=== PATIENT | female | born 1945 | race Caucasian/White ===

== ENCOUNTER 2022-04-14 11:00 | Observation (INO) | payer MEDICARE, OTHER, SELFPAY ==
[2022-04-07 08:38] VITALS: BMI 31.7
[2022-04-13] VITALS (15 sets, daily range): BP systolic 115–166; BP diastolic 51–71; PULSE 57–84; RESP 11–18; TEMP 36.3–37.2; O2SAT 93–99; BMI 31.7
--- NOTE | 2022-04-13 06:00 | DI.RAD.S_ITS ---
PROCEDURE: XR KNEE RT 1TO2V INDICATIONS: total right knee TECHNIQUE: 2 view(s) of the knee acquired. COMPARISON: None. FINDINGS: Bones: Patient is status post knee joint arthroplasty. Hardware components are in expected positions. Visualized bony structures are intact. Soft tissues: Overlying postoperative changes are noted. IMPRESSION: Expected postoperative appearance of the right knee arthroplasty. Dictated by: Edgar Mcintyre M.D. on 04/13/2022 at 10:23 Approved by: Edgar Mcintyre M.D. on 04/13/2022 at 10:24
[2022-04-13] MEDS: CELECOXIB 200 MG CAPSULE PO (07:19)
[2022-04-13] MEDS: ACETAMINOPHEN 325 MG TABLET 975 MG PO (07:19)
[2022-04-13] MEDS: LACTATED RINGERS 1,000 ML 42 ML IV ×2 (07:21→08:43)
--- NOTE | 2022-04-13 07:33 | PM.PREOP ---
Pre-operative Note COVID-19 COVID-19 status: Negative Result date/Date tested (Pos, Neg/Pending): 04/11/22 Interval Note History & Physical reviewed/Exam performed by Physician: Yes Changes to H&P: No
--- NOTE | 2022-04-13 07:45 | SUR.PREOP ---
Block start time [0730] . Monitoring initiated and maintained throughout procedure. Oxygen and medications given per anesthesiologist instructions. Patient remained stable throughout procedure, no adverse reactions noted. Block end time [0740].
[2022-04-13] MEDS: CEFAZOLIN 2 GM/100 ML PREMIX 100 ML IV ×3 (07:50→23:45)
[2022-04-13] MEDS: TRANEXAMIC ACID 1,000 MG VIAL 1000 MG INJ ×2 (08:00→09:00)
--- NOTE | 2022-04-13 08:13 | SUR.OPER ---
Supine on padded OR bed, head on pillow, arms secured on padded arm boards at <90 degrees abduction, legs uncrossed, safety belt at abdomen, tape over left leg and Demayo positioner in place for right leg. Right leg padded with foam and secured with coban
[2022-04-13] MEDS: MORPHINE 4 MG/ML INJ INJ (08:21)
[2022-04-13] MEDS: BUPIVACAINE LIPOSOME 266 MG/20 ML VIAL INJ (08:21)
[2022-04-13] MEDS: BUPIVACAINE 0.5% W/ EPI (PF) 30 ML VIAL INJ (08:22)
--- NOTE | 2022-04-13 09:17 | P.OP_ITS ---
Operative Date/Time/Diagnoses Date of procedure: 04/13/22 Time of procedure: 09:17 Pre-op diagnosis: Right knee osteoarthritis Post-op diagnosis: same Procedure & Clinicians Procedure: Right total knee replacement Same procedure as scheduled: Yes Indications: The patient has had progressively worsening right knee pain with radiographic changes consistent with arthritis. Non-operative management has failed and the patient has requested total knee replacement. The risks, benefits and alternatives to surgery were discussed with the patient prior to proceeding. Risks discussed included, but were not limited to, failure to relieve pain, stiffness, infection, nerve damage, deep venous thrombosis, pulmonary embolism, stroke, coma, heart attack, permanent paralysis and , as well as the potential need for eventual revision of the prosthetic. Surgeon: Alfred Zhu Water Manager: Lynnette Tinoco Yes if Unassisted: No Anesthesia Type: General, Peripheral nerve block and Local Operative Notes Findings: Severe medial and moderate patellofemoral osteoarthritis with relative preservation of the lateral compartment. Closure Type: primary Specimen(s): none sent Prosthetic devices, grafts, tissues, transplants, or devices: Implants used in this procedure were manufactured by the [employer] and included the BCS II Journey total knee replacement with a size 6 cobalt chromium femur, size 4 non porous tibial base plate, a 10 mm cross-linked polyethylene tibial insert and a 32 mm oval Sangeetha II patella. Applied: implant(s) Estimated Blood Loss (mL): 25 Blood products transfused: none Tourniquet time (min): 46 Procedure in detail: The patient was seen in the pre-operative area, where the patient identified the right knee as the operative site and this was marked with my initials. The patient received pre-operative antibiotics, and was taken to the operating room and placed on the operative table in the supine position. After satisfactory anesthesia, a flight crew time clerk out was performed. The right leg was encircled with a tourniquet about the proximal thigh, and the leg was prepared from the toes to the tourniquet with ChloroPrep in the usual fashion and draped through sterile drapes. The leg was elevated and exsanguinated with Eschmark bandage and the tourniquet inflated to 250 mmHg pressure. The knee was approached through an approximately 18 cm incision centered over the patella and carried into the knee through a medial parapatellar arthrotomy. The anterior osteophytes and soft tissues were removed. The rotational landmarks of [place]'s line and the transepicondylar axis were marked on the femur with electrocautery, and intramedullary guide holes for the femur and tibia were created. The distal femoral cut was made in 6 degrees of valgus using the intramedullary guide at the primary cut setting. The proximal tibial cut was then made using the intramedullary guide, taking 9 mm of bone off the less involved side. The extension gap was checked and the rotation of the femoral component confirmed with the gap balancing system. The anterior, posterior and chamfer cuts were then made. The posterior osteophytes and soft tissues were then removed. The posterior capsule was injected with part of a mixture of 60 ml 0.25% Marcaine mixed with 20 ml Exparel and 4 mg of morphine for post-operative pain control. The remainder of this mixture was injected into the capsule and subcutaneous tissues during cement curing. The tibia was prepared with the rotation set by an extra medullary guide. Trial tibial and femoral components were then placed and the intercondylar notch cut through the femoral trial. Range of motion was 0-135 degrees, with good stability throughout the range. The patella was then cut to accommodate the patellar prosthetic. There was no need for a lateral release. The trials were then removed, and the femoral hole plugged with a bone plug. The bone was prepared with pulsatile lavage, and dried with a sponge. Cement was applied and the final prosthetics placed. Excess cement was removed during and after cement curing. After confirming there was no extruded cement posteriorly, the final tibial insert was placed. The knee was copiously irrigated and the tourniquet deflated. Hemostasis was obtained. The capsule was closed with interrupted # 2 polyester suture. The subcutaneous layer was closed with 3-0 Vicryl, and the skin with a running 3-0 V-Lock suture and Dermabond. An Aquacel Ag dressing was applied and the patient was taken to recovery having tolerated the procedure well. A skilled law office assistant was necessary during this case to provide positioning, exposure and retraction to protect vital structures. The procedure could not have been completed in a safe, expedient fashion without the services of Ms. Nichols. Complications: none Post-operative Condition: stable Disposition: PACU Plan for aftercare: The patient will be maintained on a standard total knee replacement protocol with weight bearing as tolerated. The patient will receive aspirin and sequential compression devices for DVT prophylaxis. The patient will be discharged home when safe for the home environment.
[2022-04-13] MEDS: OXYCODONE IR 5 MG TABLET PO ×2 (10:00→14:42)
--- NOTE | 2022-04-13 10:22 | SUR.PHASEI ---
To 224 with duffel bag and belongings bag.
[2022-04-13] MEDS: LACTATED RINGERS 1,000 ML 100 ML IV ×2 (10:35→22:18)
--- NOTE | 2022-04-13 10:55 | PC.NURSE ---
Pt to room 224 via bed from PACU. Pt oriented to room, call light, bed controls, and tv controls, discussed not getting up without assistance and using call light for assistance. SCD's on and running. IV infusing as ordered. Pt given water to drink and a snack. Pt denies needs at this time and agrees to call for assistance as needed.
[2022-04-13] MEDS: ACETAMINOPHEN 325 MG TABLET 650 MG PO ×3 (12:25→23:45)
--- NOTE | 2022-04-13 15:15 | PT.IIE ---
Current Diagnoses Unilateral primary osteoarthritis, right knee (04/13/22) Surgery Performed Operation Date: 04/13/22 07:45 Actual Procedures p Total Knee Arthroplasty(Right) - Alfred Zhu MD Surgical History (Last Updated 04/07/22 @ 09:30 by Tuyet Espinoza RN) History of back surgery (~1981) History of hysterectomy History of lumbar spinal fusion (~1981) Hx of bilateral cataract extraction Hx of splenectomy (~2019) Hx of tonsillectomy Medical History (Last Updated 04/07/22 @ 09:30 by Tuyet Espinoza RN) HLD (hyperlipidemia) HTN (hypertension) JUAN DAVID (obstructive sleep apnea) Physical Therapy Inpatient Evaluation/Re-Eval M1 PT/OT-IP Prior Functional Status Start: 04/13/22 17:34 Freq: NEEDED Status: Active Protocol: Document 04/13/22 15:15 AB (Rec: 04/13/22 17:47 AB [id number]) Medical Review Prior Functional Status Medical History Reviewed Yes Communication able to make needs known Mobility and Gait pt stated that she is independent with all mobilities and ambulation without AD Social History Household Members none Living Arrangements House Number of Floors (Floors) One Floor Number of Stairs To Enter/Railing? 2 steps R rail ascending to enter the house from the garage 4 steps with bilateral wide rails to enter from the front (pt prefers to go through the front due to steadier railings ) Home Environment High Toilet,Walk in Shower, Built-In Shower Seat Home Equipment Front Wheel Walker,Straight Cane,Manual Wheelchair,Shower Seat without Backrest,Hand Held Shower,Grab Bars Near Toilet,Grab Bars In Shower Additional Social History Comment pt has an adjustable bed pt stated that her cousin will stay with her this week to assist her and will be able to call for assistance when needed when she is by herself; pt stated that she already has homehealth set up and will go to [facility] outpt PT afterwards M2 PT-IP Current Condition Start: 04/13/22 17:34 Freq: NEEDED Status: Active Protocol: Document 04/13/22 15:15 AB (Rec: 04/13/22 17:47 AB [id number]) Physical Therapy Current Condition Current Condition Evaluation Date 04/13/22 Treatment Diagnosis s/p R TKA; difficulty in walking Onset Date 04/13/22 M3 PT-IP Subjective Start: 04/13/22 17:34 Freq: NEEDED Status: Active Protocol: Document 04/13/22 15:15 AB (Rec: 04/13/22 17:47 AB [email or web address]) Subjective Physical Therapy Visit Type Type Initial Evaluation Visit Start Time 15:15 Visit Stop Time 16:05 Total Visit Minutes 50 Number of EVENT TECHNICIAN Visits 0 Physical Therapy Visit Comments Patient Comments agreed to do PT Therapy Pain Assessment Pain When Pain Assessed During Mobility Pain Present Pain Present Pain Reported Location Right Knee Scale Used pain scale not stated Pain Management Techniques Apply Cold,Distraction, Modification of Treatment,Re- positioning,Timing of Activity with Medications M4 PT-IP Mobility and Gait Start: 04/13/22 17:34 Freq: NEEDED Status: Active Protocol: Document 04/13/22 15:15 AB (Rec: 04/13/22 17:47 [email or web address]) PT-Bed Mobility Assessment Supine to Sit Supine to Sit Standby Assistance PT-Transfer Assessment Sit to and From Stand Sit to and from Stand Minimal Assistance,1 Person Assistance,Use of Upper Extremities Equipment Transfer Assistive Device Gait Belt,Front Wheeled Walker Orthotic/Prosthetic Devices or Brace: No Transfers Transfer Destination Bedside Commode Transfer Technique ambulated Transfer Ability Level of Assist Minimal Assistance,1 Person Assistance,Use of Upper Extremities Comments Mobility Comments completed supine to sit SBA and cues. requires increase time to complete task. able to sit on EOB SBA. completed sit to stand min A and requested to use the toilet but refused to walk to the toilet and requested to use bedside commode. ambulated ~ 20 ft using FWW to the bedside commode min A and cues. required min A for standing balance while assisted the hygiene care and brief management. pt agreed to sit up on the chair and ambulated from the commode to the chair using FWW min A ~ 12 ft. positioned pt on the chair. call light and table placed within reach. set up caregiver training tomorrow and pt's cousin will be coming in at 9 am tomorrow. Gait Assessment Gait Gait Assistance Required: Minimum Assistance Distance (Feet) 20 Able to Maintain Weight Bearing Status Yes During Gait Assistive Devices Assistive Device Gait Belt,Front Wheeled Walker Orthotic/Prosthetic Devices or Brace: No Gait Deviations General Gait Pattern Antalgic,Decreased Stride Length,Decreased Feet Clearance,Flexed Trunk Factors Limiting Gait Function Factors Limiting Gait Function Decreased Activity Tolerance, Decreased Strength,Limited Range of Motion,Pain,Poor Balance,Poor Safety Awareness PT-Balance Assessment Sitting Balance and Reactions Static Sitting Balance Ability Normal Dynamic Sitting Balance Ability Good Standing Balance and Reactions Static Standing Balance Ability Fair Dynamic Standing Balance Ability Fair Device Used FWW M5 PT-IP Objective Assessments Start: 04/13/22 17:34 Freq: NEEDED Status: Active Protocol: Document 04/13/22 15:15 AB (Rec: 04/13/22 17:47 AB [email or web address]) Orientation Orientation/Cognition Level of Alertness Alert Orientation Name,Place,Situation Language Function Ability No Deficits Noted Safety Awareness Decreased Safety Awareness Memory Description No Deficits Noted Gross Range of Motion Lower Extremity ROM Assessment Right Impaired Impairments R knee flexion: ~ 40 deg R knee extension: with ~ 20 deg less to 0 Strength Lower Extremity Strength Assessment Right Impaired Hip 4-/5 Knee 3+/5 Sensation Assessment Sensation Gross Sensation WNL Muscle Tone Muscle Tone WNL Yes M6 PT-IP Treatment Start: 04/13/22 17:34 Freq: NEEDED Status: Active Protocol: Document 04/13/22 15:15 AB (Rec: 04/13/22 17:47 AB [email or web address]) Physical Therapy Treatment Exercises Exercises Heel Slides Education Education Provided Precautions,Weight Bearing Status,Post-Op Packet,Safety Other Treatments Other Treatment Performed completed heel slides prior to mobility M7 PT-IP Assessment and Plan Start: 04/13/22 17:34 Freq: NEEDED Status: Active Protocol: Document 04/13/22 15:15 AB (Rec: 04/13/22 17:47 AB [email or web address]) PT Summary Assessment and Plan Potential Rehabilitation Potential Fair Status of Condition at Evaluation Evolving Summary Impairments Pain,ROM,Strength,Balance, Coordination,Sensation,Tone, Cognition,Bed Mobility, Transfers,Gait,Activity Tolerance Assessment Summary pt s/p R TKA and just had surgery today. Pt needing min A with transfers and ambulation using FWW and will likely progress during hospital stay. caregiver training set up for tomorrow at 9 am. will continue to assess progress. Goals Bed Mobility Goal Independent Transfer Goal Independent,Front Wheeled Walker Gait Goal Independent,Front Wheel Walker Gait Distance 200 Other Goals up/down 4 steps 1 rail SBA Days to Meet Goals 5 Frequency of Treatment Frequency Of Treatment Twice a Day Treatment Plan Physical Therapy Treatment Plan Bed Mobility Training,Transfer Training,Gait Training, Therapeutic Exercise,Balance Retraining,Post Op Education, Discharge Planning,Hot or Cold Pack,Neuromuscular Re-ed, Coordination Retraining,Manual Therapy Weight Bearing Status Weight Bearing Status Weight Bear as Tolerated Allowed Weight Bearing Amount (enter % RLE WBAT or #) (%) Recommendations To Nursing Amount of Assist Needed 1 Person Assist Discharge Recommendations PT Discharge Recommendations Home with Assistance,Home Health,Outpatient PT Transportation Needs at Discharge Private Vehicle
[2022-04-13] MEDS: OXYCODONE IR 10 MG TABLET PO ×2 (19:49→23:45)
[2022-04-13] MEDS: DOCUSATE 100 MG CAPSULE PO (20:52)
[2022-04-13] MEDS: MORPHINE IR 15 MG TABLET PO (20:53)
[2022-04-13] MEDS: PREGABALIN 25 MG CAPSULE PO (20:54)
[2022-04-14] VITALS (7 sets, daily range): BP systolic 135–168; BP diastolic 55–85; PULSE 54–71; RESP 18–19; TEMP 37.1–37.8; O2SAT 95–99
--- NOTE | 2022-04-14 00:59 | PC.NURSE ---
Patient is alert and oriented. Breath sounds CTA with RA sat of 95%. HRR but bradycardic with rate in 50's. Denied nausea. BT present and is passing flatus. Has chronic urinary urgency for which she takes tolterodine BID which is being substituted with oxybutynin ER while in hospital; is voiding per BSC but also incontinent of urine. Is able to move herself in bed. Assisted out of bed to BSC with walker and 1 assist. CMS is intact except only able to lift right leg a couple inches off bed. Aquacel dressing with small spot of drainage noted at proximal end; covered with rossy wrap. Complained of 10/10 pain and has been medicated with oxycodone twice this shift as well as receiving scheduled Morphine and Tylenol; declines ice pack. Had bilateral calf SCD's on until 0000 and then requested they be removed as is difficult to sleep with them on. Fall risk score is moderate but patient calls appropriately for assistance so alarm is not currently activated.
[2022-04-14] MEDS: OXYCODONE IR 10 MG TABLET PO ×2 (04:31→10:03)
[2022-04-14] MEDS: ACETAMINOPHEN 325 MG TABLET 650 MG PO ×4 (05:48→22:47)
--- NOTE | 2022-04-14 07:50 | PM.DS.1 ---
History of Present Illness History of Present Illness Date Patient Seen: 04/14/22 Time Patient Seen: 07:51 Chief complaint: OPB Narrative: Patient is complaining of moderate to severe right knee pain this morning. She is a chronic pain management patient and takes morphine sulfate 15 mg b.i.d. baseline. She feels she over did it working with physical therapy yesterday. Overall she is feeling well would like to be discharged home today. Discharge Providers Provider Discharge Date: 04/14/22 Primary care physician: Mukesh Andersen MD Consults: 04/13/22 10:09 Consult to Discharge Planning Routine Comment: Consult to Physical Therapy Evaluate & Treat Comment: Physician Instructions: postop TKA protocol Discharge provider: Camille Randall PA-C Summary Hospital Course Discharge Diagnosis: Right knee osteoarthritis Hospital Course: Operative Date/Time/Diagnoses Date of procedure: 04/13/22 Time of procedure: 09:17 Procedure & Clinicians Procedure: Right total knee replacement Same procedure as scheduled: Yes Indications: The patient has had progressively worsening right knee pain with radiographic changes consistent with arthritis. Non-operative management has failed and the patient has requested total knee replacement. The risks, benefits and alternatives to surgery were discussed with the patient prior to proceeding. Risks discussed included, but were not limited to, failure to relieve pain, stiffness, infection, nerve damage, deep venous thrombosis, pulmonary embolism, stroke, coma, heart attack, permanent paralysis and , as well as the potential need for eventual revision of the prosthetic. Surgeon: Alfred Zhu [employer] Platemaker: Lynnette Nichols Click Yes if Unassisted: No Anesthesia Type: General, Peripheral nerve block and Local Operative Notes Findings: Severe medial and moderate patellofemoral osteoarthritis with relative preservation of the lateral compartment. Closure Type: primary Specimen(s): none sent Prosthetic devices, grafts, tissues, transplants, or devices: Implants used in this procedure were manufactured by the [employer] and included the BCS II Journey total knee replacement with a size 6 cobalt chromium femur, size 4 non porous tibial base plate, a 10 mm cross-linked polyethylene tibial insert and a 32 mm oval Sangeetha II patella. Applied: implant(s) Estimated Blood Loss (mL): 25 Blood products transfused: none Tourniquet time (min): 46 Status at Discharge Cognitive/behavioral status at discharge: at baseline, oriented Functional status at discharge: uses cane/walker Overall status at discharge: patient is progressing back to baseline Exam Vital Signs (past 8 hours): - 04/14/22 00:00 04/14/22 00:00 04/14/22 04:00 Temperature 99.1 F 98.8 F Pulse Rate 54 L 61 Respiratory Rate 19 18 Blood Pressure 135/67 158/85 H Pulse Oximetry 97 95 Oxygen Flow Rate 0 04/14/22 04:00 Temperature Pulse Rate Respiratory Rate Blood Pressure 157/55 H Pulse Oximetry Oxygen Flow Rate Oxygen Delivery Method Room Air Oxygen Flow Rate 0 Narrative Exam Narrative: Pleasant 76-year-old female, resting comfortably in bed, no acute distress. Right knee dressing is clean, dry, intact. She is mildly tender to palpation with mild edema in her right calf. Bilateral lower extremity: Motor functions are grossly intact, sensation is grossly intact to light touch, calves are soft but right calf is tender to palpation with some edema. [facility] Medical History HLD (hyperlipidemia) HTN (hypertension) JUAN DAVID (obstructive sleep apnea) Surgical History History of back surgery (~1981) History of hysterectomy History of lumbar spinal fusion (~1981) Hx of bilateral cataract extraction Hx of splenectomy (~2019) Hx of tonsillectomy Social History household members: none Smoking Status: Never smoker alcohol intake: current Discharge Assessment & Plan Assessment and Plan Assessment: -stable status post right total knee arthroplasty -chronic pain management patient Plan of Treatment: -mobilize with PT. Weightbearing as tolerated with front wheel walker or cane -continue with multimodal pain management, add oxycodone for breakthrough pain in addition to her baseline morphine sulfate 15 mg b.i.d. -resume Plavix plus aspirin today for DVT prophylaxis, this is her baseline medications -right lower extremity ultrasound ordered stat to rule out DVT -DC home once cleared by PT Discharge Plan Discharge Plan Patient Disposition: Home Discharge orders & Medications Discharge Orders: Discharge (Order); Ordered 04/14/22 Ordered By: Camille Randall Prescriptions: New docusate sodium 100 mg Capsule 100 mg PO BID PRN (Reason: constipation) Qty: 20 0RF oxycodone 5 mg tablet See Rx Instructions .ROUTE .COMPLEX PRN (Reason: Pain, Severe (7-10)) Qty: 42 0RF Rx Instructions: Take 1-2 tablets every 4 hours as needed for moderate to severe breakthrough postoperative pain aspirin 81 mg Tablet,Delayed Release (Dr/Ec) 81 mg PO DAILY Qty: 90 0RF acetaminophen 325 mg Tablet 650 mg PO Q6HR Qty: 90 0RF Continued lisinopril 20 mg Tablet 60 mg PO DAILY clopidogrel 75 mg Tablet 75 mg PO DAILY tolterodine 2 mg Tablet 2 mg PO BID morphine 15 mg Tablet 15 mg PO BID rosuvastatin 40 mg Tablet 40 mg PO DAILY pregabalin 25 mg Capsule 25 mg PO BID Follow up/Referrals: Alfred Zhu MD [Physician] - As previously scheduled (Follow up with Camille Randall PA-C, on 04/28/2022 @ 10:30 am at [facility] in [place].) Mukesh Andersen MD [Primary Care Provider] - Diet/Activity/Treatments Diet: Diet as Tolerated Activity: Walk frequently! Cold/Heat Therapy: Ice to knee as needed for pain. Other treatments: Medications: -please do NOT use ibuprofen prescribed at preop appointment, it increases the risk of bleeding with Plavix and aspirin Dressing/Wound care: -Remove the Dion wrap 48 hours after surgery. -Keep Aquacell dressing in place until postoperative follow-up office visit. -Okay to shower. Keep wound out of direct water stream. No soaking or submerging until all the scabs fall off (approximately 4-6 weeks). -No lotions, ointments, or scar creams directly to the incision until the wound is healed (4-6 weeks). No soaking or submerging until all the scabs are gone (usually 4-6 weeks). -Bruising is relatively normal and can show up 1-10 days after surgery, and can travel down to your foot or ankle. This is expected after surgery, but can be painful. -Please call the office if dressing becomes wet, soiled, or saturated. Activities: -Weight-bearing as tolerated. Use front wheeled walker, and progress to cane when safe. -Continue with home exercises as directed by your physical therapist. -Elevate ?toes above the nose if you have significant swelling in your lower leg. (A wedge pillow is easiest.) -Ice your incision as needed for pain/inflammation/swelling. Protect your skin with a folded pillowcase. -Incentive Spirometer (breathing device from hospital): 5-10xs every hour while awake for the first 1-2 weeks. Follow-up: -Follow-up with your surgeon or PA in the office in 10-14 days after surgery. -Follow-up with your surgeon 6 weeks postoperatively. Call the office if you have chest pain, shortness of breath, significant swelling that will not resolve with elevating, fever over 101?, significantly worsening pain, or are concerned you might need to go to the Emergency Room. [facility]: [phone] Skin/Wound/Dressing Care Report to your healthcare provider any signs of infection, such as:: chills, fever, night sweats, unusual drainage and unusual redness Visit Report/Discharge Packet Instructions: DI for Knee Replacement Stand Alone Forms: Surgery Discharge Discharge Data Primary Care Provider: Mukesh Andersen Attending Provider: Alfred Zhu Quality VTE Deep Vein Thrombosis/Pulmonary Embolism Present on Admission: No
[2022-04-14 07:58] LABS: Hematocrit 23.1 % (36-46); Hemoglobin 7.7 g/dL (12.0-16.0)
[2022-04-14] MEDS: MORPHINE IR 15 MG TABLET PO ×2 (10:01→22:47)
[2022-04-14] MEDS: ATORVASTATIN 20 MG TABLET 80 MG PO (10:01)
[2022-04-14] MEDS: lisinopriL 20 MG TABLET 60 MG PO (10:02)
[2022-04-14] MEDS: CLOPIDOGREL 75 MG TABLET PO (10:02)
[2022-04-14] MEDS: PREGABALIN 25 MG CAPSULE PO ×2 (10:02→22:46)
[2022-04-14] MEDS: ASPIRIN EC 81 MG TABLET PO (10:02)
[2022-04-14] MEDS: DOCUSATE 100 MG CAPSULE PO ×2 (10:03→22:46)
[2022-04-14] MEDS: OXYBUTYNIN 5 MG ER TAB 10 MG PO (10:03)
--- NOTE | 2022-04-14 10:48 | PT.IPTN ---
Current Diagnoses Unilateral primary osteoarthritis, right knee (04/14/22) Surgery Performed Operation Date: 04/13/22 07:45 Actual Procedures p Total Knee Arthroplasty(Right) - Alfred Zhu MD Physical Therapy Treatment Note M2 PT-IP Current Condition Start: 04/13/22 17:34 Freq: NEEDED Status: Active Protocol: Document 04/14/22 09:39 SP (Rec: 04/14/22 15:35 SP [id number]) Physical Therapy Current Condition Current Condition Evaluation Date 04/13/22 Treatment Diagnosis s/p R TKA; difficulty in walking Onset Date 04/13/22 M3 PT-IP Subjective Start: 04/13/22 17:34 Freq: NEEDED Status: Active Protocol: Document 04/14/22 09:39 SP (Rec: 04/14/22 15:35 SP [id number]) Subjective Physical Therapy Visit Type Type Treatment Note Visit Start Time 09:39 Visit Stop Time 10:48 Total Visit Minutes 69 Notes Pt's cousin in room for CGT when arrived. Number of ELECTRICIAN APPRENTICE Visits 1 Physical Therapy Visit Comments Patient Comments Pt eating when initially arrived, requested ELECTRICIAN APPRENTICE return little later for CGT planned. Patient Goals Return home with cousin to assist her if able. Therapy Pain Assessment Pain When Pain Assessed During Mobility Pain Present Pain Present Pain Reported Location Right Knee Intensity 8 Scale Used Numeric (0 - 10) Description With Movement Pain Behaviors Facial Grimacing,Guarding Pain Management Techniques Apply Cold,Distraction, Modification of Treatment,Re- positioning,Timing of Activity with Medications M4 PT-IP Mobility and Gait Start: 04/13/22 17:34 Freq: NEEDED Status: Active Protocol: Document 04/14/22 09:39 SP (Rec: 04/14/22 15:35 SP [id number]) PT-Transfer Assessment Sit to and From Stand Sit to and from Stand Standby Assistance,Contact Guard Assistance,1 Person Assistance,Use of Upper Extremities Equipment Transfer Assistive Device Gait Belt,Front Wheeled Walker Orthotic/Prosthetic Devices or Brace: No Transfers Transfer Destination Bed,Toilet,Wheelchair Transfer Technique pt ambulated using FWW Transfer Ability Level of Assist Standby Assistance,Contact Guard Assistance,1 Person Assistance,Use of Upper Extremities Comments Mobility Comments Pt in bathroom when arrived, PASTE MIXER providing SBA to pt, when ELECTRICIAN APPRENTICE arrived. ELECTRICIAN APPRENTICE offered and educated pt and PASTE MIXER importance of use of gait belt for safety during mobility. ELECTRICIAN APPRENTICE noted pt very slow moving mobility required extra time, noted RLE unsteady midstance phase and very heavy BUE WB on FWW walking out of bathroom CGA via ELECTRICIAN APPRENTICE/cousin, cued pt R quad facilitation for safety. Pt progressed gait to sink 10 ft, safety cued postioning FWW facing sink then progressed gait to hallway wheelchair CGA via cousin. Safety cues centering/back pivot stepping FWW full back then reach slow descent CGA. Pt wheeled down to stairs, ed on patterning stair mgt. Pt STS from wc, step to gait w/ FWW to stairs Mod/ heavy BUE on FWW CGA via cousin. Pt attempted ascend stairs LHR// RUE on SPC CGA via cousin and ELECTRICIAN APPRENTICE for safety awareness initially. Pt unable to maintain quad extension RLE to allow LLE advance onto step. Pt stated I can't do it, my knee isn't strong enough. Pt attempted to walk further but unable to advance step w/ FWW. ELECTRICIAN APPRENTICE provided w/c to sit, Min A slow descent sit in wc. ELECTRICIAN APPRENTICE wheeled pt back to room. Pt SPT w/FWW CG, Min A w/c>bed. stand> sit on bed CGA cues for reaching back safety sit. Sit >supine Mod A for BLEs into bed via cousin, ELECTRICIAN APPRENTICE cued safety body mechanics, cousin said can't help patient anymore than help legs in bed due to still recovering from back issues herself. Pt ableto self center in bed via bed rails. Pt had call light and all needs in reach before left . Pt fall risk alarmed bed. ELECTRICIAN APPRENTICE discussed with PASTE MIXER which reported pt required Mod A for trunk righting/scoot to EOB. ELECTRICIAN APPRENTICE uncertain if cousin can provide that assistance at this time. Requesting pm tx and will continue to assess progress. Currently recommending SNF vs HHPT / available due to decrease strength and functional mobility that family can't provide the physical assist needed at this time. Gait Assessment Gait Gait Assistance Required: Standby Assistance,Contact Guard Assist,1 Person Assist Distance (Feet) 20 Able to Maintain Weight Bearing Status Yes During Gait Assistive Devices Assistive Device Gait Belt,Front Wheeled Walker Orthotic/Prosthetic Devices or Brace: No Gait Deviations General Gait Pattern Antalgic,Decreased Stride Length,Decreased Feet Clearance,Flexed Trunk,Step-to Gait Factors Limiting Gait Function Factors Limiting Gait Function Decreased Activity Tolerance, Decreased Strength,Difficulty Following Directions,Limited Range of Motion,Pain,Poor Balance,Poor Safety Awareness Comments Gait Comments see mobility comments Stair Climbing Assessment Comments Stair Climbing Comments Unable at this time, decreased R quad strength to maintain midstance RLE to allow LLE to advance to step. PT-Balance Assessment Sitting Balance and Reactions Static Sitting Balance Ability Normal Dynamic Sitting Balance Ability Good Standing Balance and Reactions Static Standing Balance Ability Fair Dynamic Standing Balance Ability Fair Device Used FWW M5 PT-IP Objective Assessments Start: 04/13/22 17:34 Freq: NEEDED Status: Active Protocol: Document 04/13/22 15:15 AB (Rec: 04/13/22 17:47 AB [id number]) Orientation Orientation/Cognition Level of Alertness Alert Orientation Name,Place,Situation Language Function Ability No Deficits Noted Safety Awareness Decreased Safety Awareness Memory Description No Deficits Noted Gross Range of Motion Lower Extremity ROM Assessment Right Impaired Impairments R knee flexion: ~ 40 deg R knee extension: with ~ 20 deg less to 0 Strength Lower Extremity Strength Assessment Right Impaired Hip 4-/5 Knee 3+/5 Sensation Assessment Sensation Gross Sensation WNL Muscle Tone Muscle Tone WNL Yes M6 PT-IP Treatment Start: 04/13/22 17:34 Freq: NEEDED Status: Active Protocol: Document 04/14/22 09:39 SP (Rec: 04/14/22 15:35 SP [id number]) Physical Therapy Treatment Education Education Provided Precautions,Weight Bearing Status,Post-Op Packet,Safety M7 PT-IP Assessment and Plan Start: 04/13/22 17:34 Freq: NEEDED Status: Active Protocol: Document 04/14/22 09:39 SP (Rec: 04/14/22 15:35 SP [id number]) PT Summary Assessment and Plan Potential Rehabilitation Potential Fair Status of Condition at Evaluation Evolving Summary Impairments Pain,ROM,Strength,Balance, Coordination,Sensation,Tone, Cognition,Bed Mobility, Transfers,Gait,Activity Tolerance Progress Towards Goals Slow Progress due to Pain,Slow Progress due to Activity Tolerance Assessment Summary Pt very slow to mobilize, requires extra time dut to pain and decreased strength/ activity tolerance/pain. She required Mod A per nursing for sup>sit trunk and LE assist, Mod A for BLEs into bed Sit> supine. CGA STS and gait w/ FWW,noted very heavy BUE WB onFWW during RLE WB, unsteady no buckling but potential. Unable assess stairs for safety/abililty to enter home. Will continue to assess progress. Cousin is unable to provided more than CGA support due to back issues healing from. Currently recommending SNF for improve strength/ functional mobility. WIll continue to asess progress. Goals Bed Mobility Goal Independent Transfer Goal Independent,Front Wheeled Walker Gait Goal Independent,Front Wheel Walker Gait Distance 200 Other Goals up/down 4 steps 1 rail SBA Days to Meet Goals 5 Frequency of Treatment Frequency Of Treatment Twice a Day Treatment Plan Physical Therapy Treatment Plan Bed Mobility Training,Transfer Training,Gait Training, Therapeutic Exercise,Balance Retraining,Post Op Education, Discharge Planning,Hot or Cold Pack,Neuromuscular Re-ed, Coordination Retraining,Manual Therapy Other Recommendations and Next Treatment bed mob, transfers, gait w/ Focus FWW, stair mgt if able 1 HR x4 steps, CGT with cousin when able. Weight Bearing Status Weight Bearing Status Weight Bear as Tolerated Allowed Weight Bearing Amount (enter % RLE WBAT or #) (%) Recommendations To Nursing Amount of Assist Needed 1 Person Assist Discharge Recommendations PT Discharge Recommendations Home with 24/10 Assist Available,Home Health,SNF Rehab,Outpatient PT,Home vs SNF Transportation Needs at Discharge Private Vehicle,Wheelchair/ Cabulance
--- NOTE | 2022-04-14 13:07 | CM.DANOTE ---
Initial DCP Assessment Note Pt is a 76 yo female, resident of [place] , now POD#1 from Rt knee surgery by Dr Zhu PCP: Mukesh Andersen Payer: [facility]/[employer] Reviewed chart, met w/patient, introduced self and role. Patient will not return home today but plans on discharging home tomorrow after caregiver training is performed with patient's cousin Felicia (scheduled for 0900) Patient has initiated a referral to [facility], this CM team will plan to coordinate w/sisi, they likely still need completed F2F, HH order and DC Summary upon patient's discharge No barriers identified at this time to patient's safe discharge home w/family to assist; [facility] services and eventually [facility] outpatient PT per patient . Following closely for coordination of discharge plan GILBERTO Downing Discharge Planning/Care Management CM Discharge Assessment Start: 04/14/22 09:33 Freq: Status: Active Protocol: Document 04/14/22 12:44 ALEXIS (Rec: 04/14/22 13:07 ALEXIS [id number]) Discharge Planning Assessment Assigned Claim Inspector GILBERTO Paz DPOA/Assigned Designee Name Nubia (cousin) Contact Information [phone] or cell: Advance Directives? Yes Advance Directives on File No History Provided By Patient,Medical Record Has Patient been admitted in last 30 No days? Prior Living Arrangements House Household Members none Type of transporation used prior to Drives own vehicle admit Independent with ADL's Yes Is patient alert and oriented? Yes Patient/Family Preference Home with Home Health Comment Patient has already arranged HH through [facility] services Barriers to Discharge Yes Comment Caregiver training tomorrow w/ patient's cousin. Discharge Plan Home with Home Health Transportation Arrangement Family Referrals Initiated Home Health Additional Comment Will discuss this referral w/ [facility]. A completed F2F, HH order and DC Summary likely needed for them to start care upon patient's discharge Medicare Choice List Provided No SNF/HH Preference Patient already has arranged her HH through [facility]
[2022-04-14] MEDS: OXYCODONE IR 5 MG TABLET PO (15:59)
--- NOTE | 2022-04-14 17:13 | PT.IPTN ---
Current Diagnoses Unilateral primary osteoarthritis, right knee (04/14/22) Surgery Performed Operation Date: 04/13/22 07:45 Actual Procedures p Total Knee Arthroplasty(Right) - Alfred Zhu MD Physical Therapy Treatment Note M2 PT-IP Current Condition Start: 04/13/22 17:34 Freq: NEEDED Status: Active Protocol: Document 04/14/22 16:28 SP (Rec: 04/14/22 19:23 SP [id number]) Physical Therapy Current Condition Current Condition Evaluation Date 04/13/22 Treatment Diagnosis s/p R TKA; difficulty in walking Onset Date 04/13/22 M3 PT-IP Subjective Start: 04/13/22 17:34 Freq: NEEDED Status: Active Protocol: Document 04/14/22 16:28 SP (Rec: 04/14/22 19:23 SP [id number]) Subjective Physical Therapy Visit Type Type Treatment Note Visit Start Time 16:28 Visit Stop Time 17:13 Total Visit Minutes 45 Notes Pt's cousin in room when arrived for continued CGT. Cousin donned gait belt and provided CGA for safety throughout tx. Number of CALENDER OPERATOR Visits 2 Physical Therapy Visit Comments Patient Comments Pt agreeable to mobilizing. Therapy Pain Assessment Pain When Pain Assessed During Mobility Pain Present Pain Present Pain Reported Location Right Knee Scale Used no painscale rating given Description With Movement Pain Behaviors Facial Grimacing,Guarding Pain Management Techniques Distraction,Modification of Treatment,Re-positioning M4 PT-IP Mobility and Gait Start: 04/13/22 17:34 Freq: NEEDED Status: Active Protocol: Document 04/14/22 16:28 SP (Rec: 04/14/22 19:23 SP [id number]) PT-Transfer Assessment Sit to and From Stand Sit to and from Stand Contact Guard Assistance, Minimal Assistance,1 Person Assistance,Use of Upper Extremities Equipment Transfer Assistive Device Gait Belt,Front Wheeled Walker Orthotic/Prosthetic Devices or Brace: No Transfers Transfer Destination Chair,Toilet Transfer Technique pt ambulated using FWW Transfer Ability Level of Assist Contact Guard Assistance,1 Person Assistance,Use of Upper Extremities Comments Mobility Comments Cousin donned gait belt on pt with CALENDER OPERATOR instruction. Pt completed scoot to EO chair SBA, STS w/cues push from chair then to FWW CG/Min A cues wt shift forward over BLEs due to retro lean. Gait to bathroom w/ FWW CGA step to patterning with Mod cues to focus on task, tends to stop verbose about other thoughts needs redirection. Pt did best cues for shuffle gait then demonstrated improved stride semi receiprocal stepping and pushing FWW along, cued improve foot clearance. Pt tends to hip hike stiff R knee extension. CGA pivot in bathroom, cued 1 UE contact rail while complete self brief mgt for safety, pt tends to let go both hands and little trunk sways but no LOB. Able to void little in toilet, not caught by toilet hat. STS CGA use grab bar, self brief mgt opp UE. Pt gait to sink very slow moving take lots time for steps and multiple stop stands. Cued position FWW facing sink safety support if needed. Pt completed wash hands unsupported at sink, gait back to chair, CGA. CUed reach back. Min A scoot back fully in chair, pulled out foot plate rest BLEs on. CALENDER OPERATOR educated importance performing BLE post op ex including knee flexion ROM. Pt had call light tray in front and all needs in reach before left. Pt doesn't have strength/ endurance to complete stairs at this time. Will continue to assess progress. Recommending SNF vs 24/10 if ableto complete stairs has to get into home. Gait Assessment Gait Gait Assistance Required: Standby Assistance,Contact Guard Assist,1 Person Assist Distance (Feet) 10 Able to Maintain Weight Bearing Status Yes During Gait Assistive Devices Assistive Device Gait Belt,Front Wheeled Walker Orthotic/Prosthetic Devices or Brace: No Gait Deviations General Gait Pattern Antalgic,Decreased Stride Length,Decreased Feet Clearance,Flexed Trunk,Step-to Gait Factors Limiting Gait Function Factors Limiting Gait Function Decreased Activity Tolerance, Decreased Strength,Difficulty Following Directions,Limited Range of Motion,Pain,Poor Safety Awareness Comments Gait Comments see mobility comments Stair Climbing Assessment Comments Stair Climbing Comments unable to progress further than partial room gait. Needs to complete 2-4 stairs to ability to enter brandie w/ 1 HR. PT-Balance Assessment Sitting Balance and Reactions Static Sitting Balance Ability Normal Dynamic Sitting Balance Ability Good Standing Balance and Reactions Static Standing Balance Ability Good Dynamic Standing Balance Ability Fair Device Used FWW M5 PT-IP Objective Assessments Start: 04/13/22 17:34 Freq: NEEDED Status: Active Protocol: Document 04/13/22 15:15 AB (Rec: 04/13/22 17:47 AB [id number]) Orientation Orientation/Cognition Level of Alertness Alert Orientation Name,Place,Situation Language Function Ability No Deficits Noted Safety Awareness Decreased Safety Awareness Memory Description No Deficits Noted Gross Range of Motion Lower Extremity ROM Assessment Right Impaired Impairments R knee flexion: ~ 40 deg R knee extension: with ~ 20 deg less to 0 Strength Lower Extremity Strength Assessment Right Impaired Hip 4-/5 Knee 3+/5 Sensation Assessment Sensation Gross Sensation WNL Muscle Tone Muscle Tone WNL Yes M6 PT-IP Treatment Start: 04/13/22 17:34 Freq: NEEDED Status: Active Protocol: Document 04/14/22 16:28 SP (Rec: 04/14/22 19:23 SP [id number]) Physical Therapy Treatment Education Education Provided Precautions,Weight Bearing Status,Post-Op Packet,Safety M7 PT-IP Assessment and Plan Start: 04/13/22 17:34 Freq: NEEDED Status: Active Protocol: Document 04/14/22 16:28 SP (Rec: 04/14/22 19:23 SP [id number]) PT Summary Assessment and Plan Potential Rehabilitation Potential Fair Status of Condition at Evaluation Evolving Summary Impairments Pain,ROM,Strength,Balance, Coordination,Sensation,Tone, Cognition,Bed Mobility, Transfers,Gait,Activity Tolerance Progress Towards Goals Slow Progress due to Pain,Slow Progress due to Activity Tolerance Assessment Summary Pt very slow to mobilize, requires extra time due to decreased strength/activity tolerance/pain. Pt is distractible and requires redirection to task completion . CGA/ Min A w/ FWW for all standing mobility. Decreased standing tolerance. Unable to put full wt on RLE heavy BUE on FWW, Pt doesn't have strength/ endurance to complete stairs at this time. Will continue to assess progress. Recommending SNF vs 24/10 if able to complete stairs has to get into home. Cousin is still healing from back issues so unableto provide heavy assist with bed mob/stair mgt if needed. Goals Bed Mobility Goal Independent Transfer Goal Independent,Front Wheeled Walker Gait Goal Independent,Front Wheel Walker Gait Distance 200 Other Goals up/down 4 steps 1 rail SBA Days to Meet Goals 5 Frequency of Treatment Frequency Of Treatment Twice a Day Treatment Plan Physical Therapy Treatment Plan Bed Mobility Training,Transfer Training,Gait Training, Therapeutic Exercise,Balance Retraining,Post Op Education, Discharge Planning,Hot or Cold Pack,Neuromuscular Re-ed, Coordination Retraining,Manual Therapy Other Recommendations and Next Treatment bed mobility, transfers, gait Focus w/FWW further distance, stair mgt if able 1 HR x2-4 steps, CGT with cousin continue if ableto bear weight through RLE more to assess stairs. Weight Bearing Status Weight Bearing Status Weight Bear as Tolerated Allowed Weight Bearing Amount (enter % RLE WBAT or #) (%) Recommendations To Nursing Amount of Assist Needed 1 Person Assist Discharge Recommendations PT Discharge Recommendations Home with 24/10 Assist Available,Home Health,SNF Rehab,Home vs SNF Transportation Needs at Discharge Private Vehicle,Wheelchair/ Cabulance
--- NOTE | 2022-04-14 21:08 | PC.NURSE ---
patient called requesting to use the restroom, with gait belt on and front wheel walker patient was insistent on standing by herself. This STATION HELPER tired to help her stand but she was unable to stand for more than a couple of seconds. Patient then sat back down in chair. Other the next 30 minutes this STATION HELPER talked with patient because patient stated that she was falling apart. This STATION HELPER provided emotional support. This STATION HELPER also offered the patient the oppption of a purwik to allow her to sleep through the night. Patient stated that she would like a couple of minutes to think and process what was going on. This STATION HELPER told the patient that she would be back later to help the patient with the nurse for extra support. about 30 minutes later, the STATION HELPER went into the room. Patient became very upset stating that she could hear people out side the room being murder, she than asked if there are any children outside. This STATION HELPER told the patient that she didnt see any children in the hallways but there may have been children visiting during the day. The patient then became very upset stating that she didnt trust any of the staff and that everyone was lying to her. Patient stated that she could hear noise out in the hallway and that this STATION HELPER was murdering people outside. This STATION HELPER reassured that everything was safe and that the noises that she was hearing were other patients, staff and different alarms. Patient then became more upset stating that she was going to the bathroom by herself and no one was going to stop her. Patient then stood up very unsteady like, this STATION HELPER asked the patient to please sit back down because we were waiting for the nurse to come provide assistance. Patient stated that she didn't trust time because he was drunk or high on marijuana. This STATION HELPER reassured the patient that all the staff was drus tested before being hired and that RN was not drunk and has not been drinking. Patient would not comply with the request to sit back down and went for assistance. This STATION HELPER called the RN to come provide assistance. RN came into the room. This STATION HELPER felt that it was in the best interest of the patient and STATION HELPER to switch rooms with another STATION HELPER.
[2022-04-15 03:03] VITALS: BP 174/72; PULSE 79; RESP 18; TEMP 37.6; O2SAT 95
[2022-04-15] MEDS: ACETAMINOPHEN 325 MG TABLET 650 MG PO ×2 (05:18→11:04)
[2022-04-15 05:22] LABS: Hematocrit 24.5 % (36-46); Hemoglobin 8.2 g/dL (12.0-16.0)
[2022-04-15] MEDS: polyethylene glycoL 3350 17 GM POWD.PACK PO (05:58)
[2022-04-15 08:35] VITALS: BP 179/84; PULSE 90; RESP 22; TEMP 36.9; O2SAT 97
[2022-04-15 08:43] VITALS: BP 179/84; PULSE 89
[2022-04-15] MEDS: PREGABALIN 25 MG CAPSULE PO (08:43)
[2022-04-15] MEDS: ATORVASTATIN 20 MG TABLET 80 MG PO (08:43)
[2022-04-15] MEDS: OXYBUTYNIN 5 MG ER TAB 10 MG PO (08:43)
[2022-04-15] MEDS: CLOPIDOGREL 75 MG TABLET PO (08:43)
[2022-04-15] MEDS: DOCUSATE 100 MG CAPSULE PO (08:43)
[2022-04-15] MEDS: ASPIRIN EC 81 MG TABLET PO (08:43)
[2022-04-15] MEDS: lisinopriL 20 MG TABLET 60 MG PO (08:43)
[2022-04-15] MEDS: MORPHINE IR 15 MG TABLET PO (08:44)
--- NOTE | 2022-04-15 10:22 | PT.IPTN ---
Current Diagnoses Unilateral primary osteoarthritis, right knee (04/14/22) Surgery Performed Operation Date: 04/13/22 07:45 Actual Procedures p Total Knee Arthroplasty(Right) - Alfred Zhu MD Physical Therapy Treatment Note M2 PT-IP Current Condition Start: 04/13/22 17:34 Freq: NEEDED Status: Discharge Protocol: Document 04/14/22 16:28 SP (Rec: 04/14/22 19:23 SP [id number]) Physical Therapy Current Condition Current Condition Evaluation Date 04/13/22 Treatment Diagnosis s/p R TKA; difficulty in walking Onset Date 04/13/22 M3 PT-IP Subjective Start: 04/13/22 17:34 Freq: NEEDED Status: Discharge Protocol: Document 04/15/22 13:42 [facility] (Rec: 04/15/22 13:50 [facility] [id number]) Subjective Physical Therapy Visit Type Type Treatment Note Visit Start Time 09:33 Visit Stop Time 10:22 Total Visit Minutes 49 Number of [employer] Visits 0 Physical Therapy Visit Comments Patient Comments Pt feels good about her set up at home. She couldn't sleep last night and reports she got aggitated w/nursing last night because they kept telling her something different than therapy for mobility and tried to get her into bed wrong. Therapy Pain Assessment Pain When Pain Assessed During Mobility Pain Present Pain Present Pain Reported M4 PT-IP Mobility and Gait Start: 04/13/22 17:34 Freq: NEEDED Status: Discharge Protocol: Document 04/15/22 13:42 [facility] (Rec: 04/15/22 13:50 [facility] [id number]) PT-Bed Mobility Assessment Supine to Sit Supine to Sit Minimal Assistance,Head of Bed Elevated,Bedrails Sit to Supine Sit to Supine Minimal Assistance,Head of Bed Elevated,Bedrails Scooting Scooting to Edge of Bed Standby Assistance Scooting Up and Down in Bed Standby Assistance PT-Transfer Assessment Sit to and From Stand Sit to and from Stand Standby Assistance,Use of Upper Extremities Equipment Transfer Assistive Device Gait Belt,Front Wheeled Walker Orthotic/Prosthetic Devices or Brace: No Transfers Transfer Destination Chair Transfer Technique Stand Step Pivot Transfer Ability Level of Assist Standby Assistance,Use of Upper Extremities Comments Mobility Comments pt in chair upon PT arrival.s it to stand to FWW SBA to amb SBA into BR then doffed brief indep and at SBA on toilet. Indep w/wiping and donning brief SBA for sit to stand. Pt then amb w/FWW and SBA 75ft then sat in WC then stood from WC SBA to go up/down steps w/ cues CGA w/use of L rail and cane step to. Pt then wheeled back to room and amb into bathroom SBA with FWW and then back to bed SBA. did sit to supine and supine to sit w/min A ea w/help just for RLE. Pt transfer to chair w/FWW SBA. Pt left w/call light in reach. Later touched based w/cousin when coming to pick her up and cousin can help w/leg and was educated on getting pt a bed rail. Gait Assessment Gait Gait Assistance Required: Standby Assistance Distance (Feet) 100 Able to Maintain Weight Bearing Status Yes During Gait Assistive Devices Assistive Device Gait Belt,Front Wheeled Walker Orthotic/Prosthetic Devices or Brace: No Gait Deviations General Gait Pattern Antalgic,Decreased Stride Length,Step-to Gait Factors Limiting Gait Function Factors Limiting Gait Function Decreased Activity Tolerance, Decreased Strength,Limited Range of Motion,Pain Stair Climbing Assessment Evaluation Level of Assist On Stairs Contact Guard Assistance Devices Stair Climbing Assistive Devices Straight Cane,Left Railing Technique/Endurance Stair Climbing Direction Ascend and Descend Stair Climbing Technique Step to Step Number of Steps Climbed 3 Stair Climbing Set # Repetitions (reps) 1 M5 PT-IP Objective Assessments Start: 04/13/22 17:34 Freq: NEEDED Status: Discharge Protocol: Document 04/13/22 15:15 AB (Rec: 04/13/22 17:47 [id number]) Orientation Orientation/Cognition Level of Alertness Alert Orientation Name,Place,Situation Language Function Ability No Deficits Noted Safety Awareness Decreased Safety Awareness Memory Description No Deficits Noted Gross Range of Motion Lower Extremity ROM Assessment Right Impaired Impairments R knee flexion: ~ 40 deg R knee extension: with ~ 20 deg less to 0 Strength Lower Extremity Strength Assessment Right Impaired Hip 4-/5 Knee 3+/5 Sensation Assessment Sensation Gross Sensation WNL Muscle Tone Muscle Tone WNL Yes M6 PT-IP Treatment Start: 04/13/22 17:34 Freq: NEEDED Status: Discharge Protocol: Document 04/15/22 13:42 [facility] (Rec: 04/15/22 13:50 [facility] [id number]) Physical Therapy Treatment Education Education Provided Precautions,Weight Bearing Status,Safety Other Treatments Other Treatment Performed discussed w/pt re: getting bed rail to help her get in/out of bed. Discussed possibly asking cousin to stay with her longer. Edu re: safety w/ walker. M7 PT-IP Assessment and Plan Start: 04/13/22 17:34 Freq: NEEDED Status: Discharge Protocol: Document 04/15/22 13:42 [facility] (Rec: 04/15/22 13:50 [facility] [id number]) PT Summary Assessment and Plan Summary Impairments Pain,ROM,Strength,Balance, Coordination,Sensation,Tone, Cognition,Bed Mobility, Transfers,Gait,Activity Tolerance Progress Towards Goals Progressing Toward Goals Assessment Summary Pt did much better today. She moves slowly but was able to do everything SBA w/FWW except bed mobility but cousin can help pt with this at home and does live next door so is a good option to stay longer as needed. Goals Bed Mobility Goal Independent Transfer Goal Independent,Front Wheeled Walker Gait Goal Independent,Front Wheel Walker Gait Distance 200 Other Goals up/down 4 steps 1 rail SBA Days to Meet Goals 5 Frequency of Treatment Frequency Of Treatment Twice a Day Treatment Plan Physical Therapy Treatment Plan Bed Mobility Training,Transfer Training,Gait Training, Therapeutic Exercise,Balance Retraining,Post Op Education, Discharge Planning,Hot or Cold Pack,Neuromuscular Re-ed, Coordination Retraining,Manual Therapy Weight Bearing Status Weight Bearing Status Weight Bear as Tolerated Allowed Weight Bearing Amount (enter % RLE WBAT or #) (%) Recommendations To Nursing Amount of Assist Needed 1 Person Assist Discharge Recommendations PT Discharge Recommendations Home with Assistance,Home Health Transportation Needs at Discharge Private Vehicle,Wheelchair/ Cabulance
--- NOTE | 2022-04-15 16:31 | CM.DPNOTE ---
DC Note DC home w/family today. sisi services. KISHA Ruiz, updated [facility]. They had already received an order from Dr Zhu' office for HH, nothing else needed. plan: DC home w/family and sisi services JW
== END 2022-04-15 12:13 | disposition home or self-care (01) ==
LOC: OR 14:18 → AC 14:18
PROVIDERS: Physician Assistant; Admitting Provider Orthopaedic Surgery; PCP Family Medicine; Referring Provider Podiatrist; Visit Provider Orthopaedic Surgery
PROC: 0SRC0JZ Replacement of Right Knee Joint with Synthetic Substitute, Open Approach (ICD-10-PCS; CPT 27447; principal; 2022-04-13 07:45)
DX: M17.11 Unilateral primary osteoarthritis, right knee (principal); G47.33 Obstructive sleep apnea (adult) (pediatric); I10 Essential (primary) hypertension; G89.18 Other acute postprocedural pain
CPT/HCPCS: 27447; 36415; 64450; 73560; 85014; 85018; 97116; 97162; 97530; 97535; C1776; G0378; C1713; C9290; J0690; J1100; J1170; J2250; J2270; J2405; J2704; J3010